=== PATIENT | male | born 1960 | race Caucasian/White ===

== ENCOUNTER 2019-03-22 20:23 | Emergency (ER) | payer MEDICAID ==
[~2019-03-22] VITALS: Ht 172.7 cm; Wt 125.2 kg
--- NOTE | 2019-03-22 20:33 | NUR ---
TECH AT BEDSIDE FOR EKG
--- NOTE | 2019-03-22 20:38 | NUR ---
PT BIB DAUGHTER C/C CHEST PRESSURE RADIATES TO LEFT ARM AND SHOULDER STARTED YESTERDAY. BILAT HAND NUMBESS. N/V THIS MORNING. PAIN ON INHALATION. PT STATES IT IS PAINFUL TO COUGH. PT ON MONITOR IN BED 1 WITH DAUGHTER AT BEDSIDE. WILL CONTINUE TO MONITOR.
--- NOTE | 2019-03-22 20:51 | NUR ---
BLOOD DRAWN AND GIVEN TO LAB
[2019-03-22 20:59] LABS: BASOPHILS # (AUTO) 0.1 /CMM (0.0-0.2); BASOPHILS % (AUTO) 1.1 % (0.0-2.0); HEMATOCRIT 44 % (39-51); HEMOGLOBIN 14.6 g/dL (13.5-17.5); LYMPHOCYTES # (AUTO) 2.8 /CMM (0.8-4.8); LYMPHOCYTES % (AUTO) 28.8 % (20.0-44.0); MEAN CORPUSCULAR HGB CONC 34 g/dl (31.0-36.0); MEAN CORPUSCULAR VOLUME 88 fL (80-96); MONOCYTES # (AUTO) 0.7 /CMM (0.1-1.30); MONOCYTES % (AUTO) 7.5 % (2.0-12.0); NEUTROPHILS # (AUTO) 5.7 /CMM (1.8-8.9); NEUTROPHILS % (AUTO) 58.6 % (43.0-81.0); PLATELET COUNT (AUTO) 197 /CMM (150-450); RED BLOOD CELL COUNT(AUTO) 4.92 MIL/uL (4.5-6.0); WHITE BLOOD COUNT (AUTO) 9.7 K/uL (4.3-11.0)
[2019-03-22 21:13] LABS: CARBON DIOXIDE 28 mmol/L (21-32); CHLORIDE 102 mmol/L (98-107); GLUCOSE 173 mg/dL (74-106); POTASSIUM 3.5 mmol/L (3.5-5.1); SODIUM SERUM 138 mmol/L (136-145)
[2019-03-22 21:14] LABS: CALCIUM, SERUM 8.8 mg/dL (8.5-10.1); UREA NITROGEN, BLOOD 20 mg/dL (7-18)
--- NOTE | 2019-03-22 22:56 | NUR ---
PT AMBULATORY WITH NO ASSISTANCE TO RESTROOM. DENIES PAIN AT THIS TIME.
--- NOTE | 2019-03-22 23:52 | NUR ---
PHLEB AT BEDSIDE FOR BLOOD DRAW
--- NOTE | 2019-03-22 23:56 | NUR ---
TECH AT BEDSIDE FOR REPEAT EKG
[2019-03-23 00:49] VITALS: BP 153/88
[2019-03-23] MEDS ORDERED: ACETAMINOPHEN 325 MG TABLET ONE (01:05)
--- NOTE | 2019-03-23 01:10 | NUR ---
IV removed. Catheter intact and site benign. Pressure and 4x4 applied to site. No bleeding noted.Patient discharged to home in stable condition. Written and verbal after care instructions given. Patient verbalizes understanding of instruction. PT AMBULATORY WITH STEADY GAIT ACCOMPANIED BY DAUGHTER.
[2019-03-23] MEDS ORDERED: ACETAMINOPHEN 325 MG TABLET PO ONE (01:30)
== END 2019-03-23 01:12 | disposition home or self-care (01) ==
LOC: ER 20:33
DX: R07.89 Other chest pain (principal); I10 Essential (primary) hypertension; E11.9 Type 2 diabetes mellitus without complications; F17.200 Nicotine dependence, unspecified, uncomplicated
CPT/HCPCS: 36415; 71045-TC; 80048-TC; 84484-TC; 85025-TC